=== PATIENT | female | born 1995 | race Hispanic/Latino ===

== ENCOUNTER 2017-02-27 16:19 | Emergency (ER) | payer OTHER ==
[2017-02-27] MEDS ORDERED: Lidocaine 2% Jelly 5 ML TUBE ONE ×2 (17:03→17:04)
== END 2017-02-27 17:20 | disposition home or self-care (01) ==
LOC: MADERS 16:19
DX: O9A.212 Injury, poisoning and certain other consequences of external causes complicating pregnancy, second trimester (principal); T50.995A Adverse effect of other drugs, medicaments and biological substances, initial encounter; Z79.899 Other long term (current) drug therapy; Z3A.23 23 weeks gestation of pregnancy
CPT/HCPCS: 99283